=== PATIENT | male | born 1985 | race Caucasian/White ===

== ENCOUNTER 2021-12-01 22:47 | Emergency (ER) | payer OTHER ==
[~2021-12-01] VITALS: Ht 182.9 cm; Wt 103.4 kg
--- NOTE | 2021-12-01 23:41 | NUR ---
BIBS. TO ER BED 10. AAOX4. NOT IN RESP DISTRESS. AMBULATORY. CAME IN FOR R LOWER LEG PAIN, REDNESS AND SWELLING X 2 DAYS. WORSE TODAY. PER PT, HE HAD THE SAME PROBLEM ABOUT A YEAR AGO AND WAS GIVEN ORAL ATB WHICH FIXED THE PROBLEM. PT IS AFEBRILE. MD AT BEDSIDE FOR EVAL. AWAITING ORDERS
[2021-12-01] MEDS ORDERED: LIDOCAINE HCL/PF 2 % 5ML SDV 5 ML VIAL ONE (23:50)
[2021-12-01] MEDS ORDERED: SULFAMETH/TRIMETH 800/160 MG 1 UDTAB TABLET ONE (23:51)
[2021-12-01] MEDS ORDERED: CEFTRIAXONE 1 G VIAL ONE (23:51)
[2021-12-01] MEDS ORDERED: VANCOMYCIN 500 MG VIAL ONE (23:55)
[2021-12-01] MEDS ORDERED: VANCOMYCIN 1 GM VIAL ONE (23:56)
[2021-12-02] MEDS ORDERED: SULFAMETH/TRIMETH 800/160 MG 1 UDTAB TABLET PO ONE
[2021-12-02] MEDS ORDERED: CEFTRIAXONE 1 G VIAL IM ONE
[2021-12-02] MEDS ORDERED: VANCOMYCIN 1.5 GM in IV D5W 500 ML IV ONE ×2
[2021-12-02 00:10] LABS: BASOPHILS # (AUTO) 0.1 K/uL (0.0-0.2); BASOPHILS % (AUTO) 0.6 % (0.0-2.0); HEMATOCRIT 35 % (39-51); HEMOGLOBIN 11.4 g/dL (13.5-17.5); LYMPHOCYTES # (AUTO) 1.3 K/uL (0.8-4.8); LYMPHOCYTES % (AUTO) 14.5 % (20.0-44.0); MEAN CORPUSCULAR HGB CONC 33 g/dl (31.0-36.0); MEAN CORPUSCULAR VOLUME 84 fL (80-96); MONOCYTES % (AUTO) 10.8 % (2.0-12.0); NEUTROPHILS # (AUTO) 6.5 K/uL (1.8-8.9); NEUTROPHILS % (AUTO) 73.1 % (43.0-81.0); PLATELET COUNT (AUTO) 311 K/uL (150-450); WHITE BLOOD COUNT (AUTO) 8.8 K/uL (4.3-11.0)
[2021-12-02 00:23] LABS: CALCIUM, SERUM 8.6 mg/dL (8.5-10.1); CREATININE 0.8 mg/dL (0.6-1.3); POTASSIUM 4.1 mmol/L (3.5-5.1)
[2021-12-02] MEDS ORDERED: SULF1TAB48 PO (01:41)
[2021-12-02] MEDS ORDERED: CEPH500C2 PO (01:41)
[2021-12-02 01:55] VITALS: BP 140/80
--- NOTE | 2021-12-02 01:55 | NUR ---
Patient discharged to home in stable condition. Written and verbal after care instructions given. Patient verbalizes understanding of instruction.
== END 2021-12-02 01:55 | disposition home or self-care (01) ==
LOC: ER 22:50
DX: L03.115 Cellulitis of right lower limb (principal); F17.200 Nicotine dependence, unspecified, uncomplicated; Z60.2 Problems related to living alone
CPT/HCPCS: 36415; 80048; 85025; 93971; 96365; 99284; J0696; J3370 ×2; J3490; J7060

== ENCOUNTER 2021-12-03 23:53 | Emergency (ER) | payer OTHER ==
[~2021-12-03 23:53] MED LIST: CEPH500C2 PO; SULF1TAB48 PO
--- NOTE | 2021-12-04 01:56 | NUR ---
PATIENT LEFT WITHOUT BEING SEEN
== END 2021-12-04 01:57 | disposition left against medical advice (07) ==
LOC: ER 23:58
DX: Z53.21 Procedure and treatment not carried out due to patient leaving prior to being seen by health care provider (principal)